=== PATIENT | female | born 1970 ===

== ENCOUNTER 2018-01-23 08:58 | Outpatient (CLI) | payer OTHER ==
[~2018-01-23] VITALS: Ht 160 cm; Wt 74.8 kg
== END 2018-01-23 09:15 | disposition home or self-care (01) ==
LOC: OFIC 805 08:58
DX: K21.9 Gastro-esophageal reflux disease without esophagitis (principal); R04.0 Epistaxis; R09.81 Nasal congestion; J34.0 Abscess, furuncle and carbuncle of nose

== ENCOUNTER 2018-01-31 12:50 | Outpatient (CLI) | payer OTHER ==
[~2018-01-31] VITALS: Ht 152.4 cm; Wt 74.8 kg
== END 2018-01-31 13:10 | disposition home or self-care (01) ==
LOC: OFIC 805 12:50
DX: J34.0 Abscess, furuncle and carbuncle of nose (principal); R09.81 Nasal congestion; K21.9 Gastro-esophageal reflux disease without esophagitis; R04.0 Epistaxis